=== PATIENT | male | born 2000 ===

== ENCOUNTER 2023-10-31 10:26 | Emergency (ER) | payer OTHER, SELFPAY ==
[2023-10-31 10:34] VITALS: BP 125/70; PULSE 79; RESP 20; TEMP 37.6; O2SAT 99; BMI 26.6
--- NOTE | 2023-10-31 11:57 | ED_ITS ---
HPI - Skin/Abscess/Foreign Bdy General Chief complaint: Skin/Abscess/Foreign Body Stated complaint: growth on chest Time Seen by Provider: 10/31/23 11:51 Source: patient Mode of arrival: ambulatory Limitations: no limitations History of Present Illness HPI narrative: 23 yo male no PMH here with c/o 1 week worsening rash and swelling to L nipple no trauma no prior history no piercing or injury to the nipple. This has never happened before. The nipple keeps growing and becoming more painful and swollen. No fevers n/v/d. MD complaint: abscess/boil and lesion Onset (ago): week(s) (1) Tetanus up to date: yes Location: chest Severity: moderate Quality: aching Pain Consistency: constant Relieving factors: none Exacerbating factors: palpation Context: none Associated symptoms: denies other symptoms Treatments prior to arrival: none Related Data Allergies Allergy/AdvReac Type Severity Reaction Status Date / Time No Known Allergies Allergy Verified 10/31/23 10:35 Review of Systems 2 Review of Systems: Constitutional : No Fever, No Chills ENT/Mouth : No sore throat, No Rhinorrhea Eyes: No Eye Pain, No Swelling, No Redness Cardiovascular : No Chest Pain, No SOB Respiratory : No Cough, No Sputum Gastrointestinal : No Nausea, No Vomiting, No Diarrhea, No abdominal Pain Musculoskeletal : No joint pain, No Myalgias, No Joint Swelling Skin : pos Skin Lesions, positive skin rash Neuro : No Weakness, No Numbness, No Headache Psych : No Anxiety, No Depression All other systems reviewed and are negative [facility] Past Medical History Attestation statement: The following information was validated with the patient. Medical History (Updated 10/31/23 @ 12:19 by Sorin Green) No pertinent past medical history Social History Social History (Updated 10/31/23 @ 11:58 by Gloria Young DO) Patient Tobacco Use Status: Never used Tobacco Physical Exam 2 Vital Signs: Vital Signs: Last Vital Signs Temp 98.6 F 10/31/23 12:02 Pulse 78 10/31/23 12:02 Resp 18 10/31/23 12:02 BP 127/75 10/31/23 12:02 Pulse Ox 100 10/31/23 12:02 O2 Del Method Room Air 10/31/23 12:02 BMI result Body Mass Index 26.6 Appearance: Alert. Oriented X3. No acute distress. Eyes: Pupils equal, round and reactive to light. ENT: Pharynx normal. Neck: Normal inspection. Neck supple. CVS: Normal heart rate and rhythm. Pulses normal. Chest: L nipple is swollen with fluctuance and ttp no drainage slight erythema along surrounding area is is about 2-3cm Respiratory: No respiratory distress. Breath sounds normal. Abdomen: Soft and nontender. Skin: Skin warm and dry. Normal skin color. Normal skin turgor. Extremities: No lower extremity edema. No calf ttp Neuro: Oriented X 3. No motor deficit. No sensory deficit. Course Course Course Narrative: patient left against medical advice walked out without any papers and did not get dose of his augmentin and doxy Medications Administered Discontinued Medications Generic Name Dose Route Start Last Admin Trade Name Freq PRN Reason Stop Dose Admin Amoxicillin/Clavulanate Potassium 875 mg 10/31/23 12:33 10/31/23 12:49 Amoxicillin/Potassium Clav 875 Mg Tablet PO 10/31/23 12:34 Not Given ONCE ONE Doxycycline Monohydrate 100 mg 10/31/23 12:33 10/31/23 12:49 Doxycycline Monohydrate 100 Mg Capsule PO 10/31/23 12:34 Not Given ONCE ONE Lidocaine HCl 5 ml 10/31/23 11:58 10/31/23 12:49 Lidocaine Hcl 1 % Mpf 5 Ml Vial SUBCUT 10/31/23 11:59 Not Given ONCE ONE Medical Decision Making Medical Decision Making MDM Narrative: 23 yo male otherwise healthy here with what appears to be infection and abscess of L nipple/areola - no systemic symptoms no fam hx of breast cancer in family at this time will consult surgery before preceding with intervention given area. Differential Diagnosis Differential Diagnoses: The differential diagnosis associated with the presentation includes abscess, cellulitis, mass Admission/Observation Consideration of admission/observation: Escalation of care including admission/observation considered Consult Healthcare Provider Management of the patient was discussed with: Database Consultant (surgery) offered surgery patient declines is from CT states he is going to drive home now to get it done as he is staying at air bnb he is alert and oriented x 3 Dr. Allen came and saw patient in the ED External Record Review External record reviewed: Inpatient record Prescription Management I considered prescription management with: Antibiotic Discharge Plan Discharge Clinical Impression: Abscess of left nipple Patient Disposition: Left Against Medical Advice Instructions: Abscess (ED), Against Medical Advice (ED) Additional Instructions: you need to get this drained today a surgeon offered to come drain it for you this can spread and cause a serious infection in your body that is life threatening. return for any worsening symptoms or concerns. you were given oral dose of augmentin and doxycyclline in the ER Stand Alone Forms: Against Medical Advice Discharge Date/Time: 10/31/23 13:35 Print Language: Sammarinese
[2023-10-31 12:02] VITALS: BP 127/75; PULSE 78; RESP 18; TEMP 37; O2SAT 100
--- NOTE | 2023-10-31 12:33 | PC.NURSE ---
surgeon at bedside to discuss plan of care and need for drainage. patient stating he is from [place] and has follow up care there for this issue, states he will be seen in [place] today for it.
--- NOTE | 2023-10-31 12:44 | PM.CNGS ---
History of Present Illness Consult details Consult date: 10/31/23 Narrative: Patient is otherwise healthy 23 -year-old male presents with a proximal 1 week history of progressively worsening left breast pain, swelling, and redness. He has never had this before. Workup by ER physician demonstrates a left breast abscess. [facility] Past Medical History Medical History (Updated 10/31/23 @ 12:19 by Sorin Green) No pertinent past medical history Social History Social History (Updated 10/31/23 @ 11:58 by Gloria Young DO) Patient Tobacco Use Status: Never used Tobacco Advance Directives: No Advance Directives Information Provided: No Meds Allergies Allergy/AdvReac Type Severity Reaction Status Date / Time No Known Allergies Allergy Verified 10/31/23 10:35 Physical Exam Vital Signs: Vital Signs: Last Vital Signs Temp 98.6 F 10/31/23 12:02 Pulse 78 10/31/23 12:02 Resp 18 10/31/23 12:02 BP 127/75 10/31/23 12:02 Pulse Ox 100 10/31/23 12:02 O2 Del Method Room Air 10/31/23 12:02 BMI result Body Mass Index 26.6 Chest: Other: Subareolar left breast abscess. Moderate surrounding cellulitis. Results Labs Labs: All other labs normal. Assessment and Plan (1) Abscess of left nipple: Status: Acute Plan Risks, benefits, alternatives of incision and drainage were reviewed with the patient and included but not limited to bleeding, infection, recurrence, numbness, pain, scarring that were discussed with the patient at length. Patient is from [place] and would rather have his care provided there as instructed by his mother. Once again we offered to provide the service here but he insists on having this done nearest home in [place]. He is leaving for there today. He was here for work issues. All questions answered. Patient will follow-up p.r.n. should he not return to [place]. Procedures Date of Service Date of Service: 10/31/23
--- NOTE | 2023-10-31 13:34 | PC.NURSE ---
attempted to discharge patient, no longer in the room. did not receive the PO antibiotics
== END 2023-10-31 13:35 | disposition left against medical advice (07) ==
PROVIDERS: Emergency Provider Emergency Medicine
DX: N61.1 Abscess of the breast and nipple (principal)
CPT/HCPCS: 99282

== ENCOUNTER → 2023-10-31 11:45 | Outpatient (BNV) | payer OTHER, SELFPAY | PROVIDERS: Emergency Provider Emergency Medicine; Visit Provider Surgery | DX: N61.1 Abscess of the breast and nipple (principal) | CPT/HCPCS: 99284 ==